=== PATIENT | male | born 1985 | race Caucasian/White ===

== ENCOUNTER 2019-04-05 07:59 | Emergency (ER) | payer BC ==
[2019-04-05] MEDS ORDERED: Albuterol/Ipratropium 3.0-0.5 MG/3 ML Neb Soln ONE (08:01)
[2019-04-05] MEDS ORDERED: Sodium Chloride 0.9% 1,000 ML IV ONE ×2 (08:07→08:48)
[2019-04-05] MEDS ORDERED: methylPREDNISolone Sodium Succinate 125 MG/2 ML SDV IVPUSH ONE (08:07)
[2019-04-05] MEDS ORDERED: Sodium Chloride 0.9% 10 ML Syringe FLUSH PRN (08:07)
[2019-04-05] MEDS ORDERED: Sodium Chloride 0.9% 2.5 ML Syringe FLUSH PRN (08:07)
--- NOTE | 2019-04-05 08:13 | EDM.PDOC ---
ED HPI GENERAL MEDICAL PROBLEM - General Chief Complaint: Respiratory Problem Stated Complaint: CHEST PAIN Time Seen by Provider: 04/05/19 08:01 Source of Information: Reports: Patient History Limitations: Reports: No Limitations - History of Present Illness INITIAL COMMENTS - FREE TEXT/NARRATIVE: History of present illness: []Has a history of asthma and has had a 2 day history of shortness of breath, chest tightness and congestion. He used 70 puffs of albuterol inhaler yesterday and has 3 left with little relief woke up this morning more short of breath. He denies any fevers, chills, vomiting or diarrhea. Review of systems: As per history of present illness and below otherwise all systems reviewed and negative. Past medical history: As per history of present illness and as reviewed below otherwise noncontributory. Surgical history: As per history of present illness and as reviewed below otherwise noncontributory. Social history: No reported history of drug or alcohol abuse. Family history: As per history of present illness and as reviewed below otherwise noncontributory. Physical exam: General: Well developed, well nourished in NAD HEENT: Atraumatic, normocephalic, pupils reactive, negative for conjunctival pallor or scleral icterus, mucous membranes moist, throat clear, neck supple, nontender, trachea midline. Lungs: Bilateral wheezing to auscultation, chest nontender. Heart: S1S2, regular, negative for clicks, rubs, or JVD. Abdomen: NABS, Soft, nondistended, nontender. Negative for masses or hepatosplenomegaly. Negative for costovertebral tenderness. Pelvis: Stable nontender. Genitourinary: Deferred. Rectal: Deferred. Extremities: Atraumatic, negative for cords or calf pain. Neurovascular unremarkable. Neuro: Awake, alert, oriented. Cranial nerves II through XII unremarkable. Cerebellum unremarkable. Motor and sensory unremarkable throughout. Exam nonfocal. Skin:warm and dry Diagnostics: Chest x-ray Therapeutics: DuoNeb, Solu-Medrol, IV fluid, prednisone, mag sulfate ED Course: Improved Impression: Acute bronchitis Prescriptions: Albuterol inhaler, Zithromax, prednisone Plan: Take meds as directed, follow up with your primary care physician, return to ER if symptoms worsen or change. Definitive disposition and diagnosis as appropriate pending reevaluation and review of above. - Related Data Allergies Allergy/AdvReac Type Severity Reaction Status Date / Time Penicillins Allergy Cannot Verified 04/05/19 08:05 Remember Home Meds: Home Meds Albuterol [Ventolin HFA] 2 puff INH Q4HR PRN #1 inhaler 04/05/19 [Rx] Albuterol [Ventolin HFA] 8 gm INH ASDIRECTED 04/05/19 [History] Azithromycin [Zithromax] 250 mg PO DAILY #6 tab 04/05/19 [Rx] predniSONE [Prednisone] 20 mg PO DAILY #5 tablet 04/05/19 [Rx] ED ROS GENERAL - Review of Systems Review Of Systems: See Below ED EXAM, GENERAL - Physical Exam Exam: See Below Course - Vital Signs Last Recorded V/S: Last Vital Signs Temp 97.8 F 04/05/19 10:59 Pulse 73 04/05/19 10:59 Resp 19 04/05/19 10:59 BP 132/89 04/05/19 10:59 Pulse Ox 95 04/05/19 10:59 - Orders/Labs/Meds Orders: Active Orders 24 hr Category Date Time Status RT Aerosol Therapy [RC] ASDIRECTED Care 04/05/19 08:49 Inactive RT Aerosol Therapy [RC] ASDIRECTED Care 04/05/19 08:55 Active Saline Lock Insert [OM.PC] Stat Oth 04/05/19 08:07 Ordered Meds: Medications Discontinued Medications Generic Name Dose Route Start Last Admin Trade Name Freq PRN Reason Stop Dose Admin Albuterol 2.5 mg 04/05/19 08:55 04/05/19 08:56 Proventil Neb Soln NEB 04/05/19 08:56 2.5 mg ONETIME ONE Administration Albuterol/Ipratropium Confirm 04/05/19 08:01 04/05/19 08:15 Duoneb 3.0-0.5 Mg/3 Ml Administered 04/05/19 08:02 3 ml Dose Administration 3 ml .ROUTE .STK-MED ONE Sodium Chloride 1,000 mls @ 999 mls/hr 04/05/19 08:07 04/05/19 08:15 Normal Saline IV 04/05/19 09:07 999 mls/hr .Bolus ONE Administration Magnesium Sulfate 2 gm/ Premix 50 mls @ 25 mls/hr 04/05/19 08:48 04/05/19 08: 56 IV 04/05/19 10:47 25 mls/hr ONETIME ONE Administration Sodium Chloride 1,000 mls @ 999 mls/hr 04/05/19 08:48 04/05/19 08:57 Normal Saline IV 04/05/19 09:48 999 mls/hr .Bolus ONE Administration Methylprednisolone Sodium Succinate 125 mg 04/05/19 08:07 04/05/19 08:15 Solu-Medrol IVPUSH 04/05/19 08:08 125 mg ONETIME ONE Administration Sodium Chloride 10 ml 04/05/19 08:07 04/05/19 08:15 Saline Flush FLUSH 10 ml ASDIRECTED PRN Administration Keep Vein Open Sodium Chloride 2.5 ml 04/05/19 08:07 04/05/19 08:15 Saline Flush FLUSH 2.5 ml ASDIRECTED PRN Administration Keep Vein Open Departure - Departure Time of Disposition: 10:55 Disposition: Home, Self-Care 01 Condition: Good Clinical Impression: Acute asthma Acute bronchitis Qualifiers: Bronchitis organism: unspecified organism Qualified Code(s): J20.9 - Acute bronchitis, unspecified - Discharge Information *PRESCRIPTION DRUG MONITORING PROGRAM REVIEWED*: No *COPY OF PRESCRIPTION DRUG MONITORING REPORT IN PATIENT BLUE: No Prescriptions: Albuterol [Ventolin HFA] 2 puff INH Q4HR PRN #1 inhaler PRN Reason: Shortness Of Breath Azithromycin [Zithromax] 250 mg PO DAILY #6 tab predniSONE [Prednisone] 20 mg PO DAILY #5 tablet Instructions: Acute Bronchitis, Adult, [id number], Asthma, Adult, Easy-to- Read Referrals: PCP,Unknown [Primary Care Provider] - Forms: ED Department Discharge Additional Instructions: The following information is given to patients seen in the emergency department who are being discharged to home. This information is to outline your options for follow-up care. We provide all patients seen in our emergency department with a follow-up referral. The need for follow-up, as well as the timing and circumstances, are variable depending upon the specifics of your emergency department visit. If you don't have a primary care physician on staff, we will provide you with a referral. We always advise you to contact your personal physician following an emergency department visit to inform them of the circumstance of the visit and for follow-up with them and/or the need for any referrals to a consulting specialist. The emergency department will also refer you to a specialist when appropriate. This referral assures that you have the opportunity for follow-up care with a specialist. All of these measure are taken in an effort to provide you with optimal care, which includes your follow-up. Under all circumstances we always encourage you to contact your private physician who remains a resource for coordinating your care. When calling for follow-up care, please make the office aware that this follow-up is from your recent emergency room visit. If for any reason you are refused follow-up, please contact the [facility] Emergency Department at and asked to speak to the emergency department charge nurse. Take meds as directed, follow up with your primary care physician, return to ER if symptoms worsen or change. [facility] [address] [place] [id number] - My Orders Last 24 Hours: My Active Orders 04/05/19 08:07 Saline Lock Insert [OM.PC] Stat 04/05/19 08:49 RT Aerosol Therapy [RC] ASDIRECTED 04/05/19 08:55 RT Aerosol Therapy [RC] ASDIRECTED - Assessment/Plan Last 24 Hours: My Active Orders 04/05/19 08:07 Saline Lock Insert [OM.PC] Stat 04/05/19 08:49 RT Aerosol Therapy [RC] ASDIRECTED 04/05/19 08:55 RT Aerosol Therapy [RC] ASDIRECTED
[2019-04-05] MEDS ORDERED: Magnesium Sulfate/Water 2 GM in Premix Bag 1 BAG IV ONE (08:48)
[2019-04-05] MEDS ORDERED: Albuterol 0.083% 2.5 MG/3 ML Neb Soln NEB ONE ×2 (08:49→08:55)
--- NOTE | 2019-04-05 09:09 | CR ---
Indication: Shortness of breath. Asthma. Technique: Single AP portable view of the chest was obtained. Comparison: None Findings: Heart is normal in size. The lungs are clear. No infiltrate, pleural effusion, or pneumothorax is identified. Impression: No acute cardiopulmonary process. Dictated by Romy Manley MD @ Apr 05 2019 9:07AM Signed by Dr. Romy Manley @ Apr 05 2019 9:08AM
== END 2019-04-05 10:59 | disposition home or self-care (01) ==
LOC: MW.ED 07:59
DX: J45.901 Unspecified asthma with (acute) exacerbation (principal); Z79.899 Other long term (current) drug therapy; Z88.0 Allergy status to penicillin
CPT/HCPCS: 71045; 93005; 96361; 96365; 96366; 96375; 99285; J2930; J3475; J7040; J7620-GY